=== PATIENT | female | born 1990 | race African-American/Black ===

== ENCOUNTER 2018-03-10 12:53 | Emergency (ER) | payer SELFPAY ==
--- NOTE | 2018-03-10 12:57 | PDOC ---
History of Present Illness - General Chief Complaint: Weakness Stated Complaint: WEAKNESS, DIZZINESS Time Seen by Provider: 03/10/18 12:57 - History of Present Illness Initial Comments: 27 year old with PMH of [id number] presenting 35 weeks and 4 days presenting with an episode of weakness earlier today while walking up the stairs. States that she was n the way to [facility] in the mall at approximately 11 :00 AM then felt very weak and sat down in the chair at the [facility], subsequently unable to rise from her chair. She drank a decent amount of water and felt slightly better. Currently she feels asymptomatic. Denies any actual syncope or fall. Denies fevers, chills, paresthesias, nausea, vomiting, diarrhea,or other symptoms. She has experienced these exact symptoms in the past during previous pregnancies. Had labs checked two months ago and they were WNL. Hasn't received any iron infusions in a few months. Recently relocated from [place]. 03/10/18 13:03 Past History - Past Medical History Allergies/Adverse Reactions: Allergies Allergy/AdvReac Type Severity Reaction Status Date / Time ondansetron Allergy Difficulty Verified 03/10/18 12:56 Breathing Penicillins Allergy Rash Verified 03/10/18 12:56 Home Medications: Ambulatory Orders Sulfamethoxazole/Trimethoprim [Bactrim *Ds*] 1 each PO BID #14 tablet 11/27/15 Iron Infusion IV WEEKLY 12/06/15 Hydrocodone/Acetaminophen [Lortab 5-325 mg Tablet] 1 each PO QID PRN #10 tablet MDD 5 pills 12/07/15 Anemia: Yes (ON IRON INFUSIONS WEEKLY) Asthma: No Cancer: No Cardiac Disorders: No CVA: No COPD: No CHF: No Dementia: No Diabetes: No GI Disorders: No Disorders: No HTN: No Hypercholesterolemia: No Liver Disease: No Seizures: No Thyroid Disease: No - Suicide/Smoking/Psychosocial Hx Smoking History: Never smoked Hx Alcohol Use: No Drug/Substance Use Hx: No Substance Use Type: None Review of Systems - Review of Systems Constitutional: No: Chills, Diaphoresis, Fever HEENTM: No: Blurred Vision, Tearing Respiratory: No: Cough, Shortness of Breath, Wheezing Cardiac (ROS): No: Chest Pain, Edema, Irregular Heart Rate ABD/GI: No: Constipated, Diarrhea, Nausea, Vomiting : No: Burning, Dysuria Musculoskeletal: No: Back Pain, Joint Pain Integumentary: No: Bruising, Erythema, Flushing Neurological: No: Headache, Numbness, Paresthesia Psychiatric: No: Anxiety, Depression Endocrine: No: Flushing, Intolerance to Cold, Intolerance to Heat Hematologic/Lymphatic: No: Anemia, Blood Clots, Easy Bleeding *Physical Exam - Physical Exam General Appearance: Yes: Nourished, Appropriately Dressed. No: Apparent Distress HEENT: positive: EOMI, BECKY, Normal ENT Inspection, Normal Voice Neck: positive: Trachea midline, Normal Thyroid, Supple. negative: Tender, Rigid Respiratory/Chest: positive: Lungs Clear, Normal Breath Sounds. negative: Chest Tender, Respiratory Distress, Accessory Muscle Use Cardiovascular: positive: Regular Rhythm, Regular Rate Gastrointestinal/Abdominal: positive: Normal Bowel Sounds, Flat, Decreased BS. negative: Tender Musculoskeletal: positive: Normal Inspection. negative: Decreased Range of Motion Extremity: positive: Normal Capillary Refill, Normal Inspection, Normal Range of Motion. negative: Tender Integumentary: positive: Normal Color, Dry, Warm Neurologic: positive: citrix engineer II-XII NML intact, Fully Oriented, Alert, Normal Mood/ Affect, Normal Response, Motor Strength 5/5 Medical Decision Making - Medical Decision Making 27 year old with history of anemia and weakness during previous pregnancies presenting with any episode of weakness,. EKG showing rate 87, MO 142, QRS 78, QTc 433, and normal axis. Will sen basic labs ad UA then send upstairs. 03/10/18 13:27 *DC/Admit/Observation/Transfer Diagnosis at time of Disposition: Weakness - Discharge Dispostion Disposition: HOME Condition at time of disposition: Stable Decision to Admit order: No - Referrals Referrals: Addison Ceron MD [Staff Physician] - - Patient Instructions Printed Discharge Instructions: DI for Muscle Weakness Additional Instructions: Please stay hydrated. Please find OB care while you are here in [place]/ [place]. You can seek a referral from the OB team when you go upstairs. Please return to the ED if you have worsening weakness, any new or worsening symptoms. - Post Discharge Activity
[2018-03-10 13:01] VITALS: BMI 23.6
--- NOTE | 2018-03-10 13:25 | PDOC ---
Attending Attestation - Resident Resident Name: Pallavi Barron - ED Attending Attestation I have performed the following: I have examined & evaluated the patient, The case was reviewed & discussed with the resident, I agree w/resident's findings & plan - HPI HPI: 03/10/18 13:21 27-year-old female history of anemia requiring iron transfusions in the past, at 35 weeks gestation of otherwise uncomplicated recently relocated from [place] presents here today for evaluation of lightheadedness/near syncope after climbing up stairs. At baseline, patient has lightheadedness with exertion , has had negative workups in the past, today while climbing stairs had more severe lightheadedness with near-syncope, presents to the emergency department. Currently asymptomatic and feels better, denies any chest pain or palpitations or difficulty breathing, denies any unilateral leg pain or swelling, denies any recent fevers or chills or infectious complaints, or dehydration. - Physicial Exam PE: 03/10/18 13:23 Vital signs normal, blood pressure 119 systolic Very well-appearing, seated upright in stretcher making jokes with staff, no complaints Heart is regular, no audible murmur or ectopy or tachycardia. Lungs are clear. Gravid abdomen, nontender No leg swelling or tenderness - Medical Decision Making 03/10/18 13:24 27-year-old female with history of anemia and episodic lightheadedness resents with exertional lightheadedness, now resolved. No specific cardiopulmonary complaints or neurological complaints, hemodynamically stable here without red flags on history or physical exam. EKG shows no concerning findings We'll send CBC to assess level of anemia, check UA Labor and delivery referral for monitoring Heart Score/ECG Review #1 ECG reviewed & interpreted by me at: 13:12 General ECG Interpretation: Sinus Rhythm, Normal Rate (87), Normal Intervals ( qtc 433), No acute ischemic changes
[2018-03-10 13:48] LABS: BASO % 0.3 % (0-2.0); EOS % 0.2 % (0-4.5); HEMATOCRIT 27.3 % (32.4-45.2); HEMOGLOBIN 8.5 GM/dL (10.7-15.3); LYMPH % 12.5 % (8-40); MCH 21.1 pg (25.7-33.7); MCHC 31.2 g/dl (32.0-36.0); MEAN CELL VOLUME 67.7 fl (80-96); MEAN PLT VOLUME 8.3 fl (7.5-11.1); MONO % 7.2 % (3.8-10.2); NEUT % 79.8 % (42.8-82.8); PLATELET COUNT 298 K/MM3 (134-434); RBC 4.03 M/mm3 (3.60-5.2); RDW 17.3 % (11.6-15.6); WHITE BLOOD COUNT 11.2 K/mm3 (4.0-10.0)
[2018-03-10 14:13] LABS: ALBUMIN 2.6 g/dl (3.4-5.0); ALK PHOS 201 U/L (45-117); ANION GAP 7 MMOL/L (8-16); BILIRUBIN,TOTAL 0.6 mg/dL (0.2-1); BLOOD UREA NITROGEN 6 mg/dL (7-18); CALCIUM 8.7 mg/dL (8.5-10.1); CHLORIDE 105 mmol/L (98-107); CO2 24 mmol/L (21-32); CREATININE 0.5 mg/dL (0.55-1.3); GLUCOSE,RANDOM 92 mg/dL (74-106); POTASSIUM 3.8 mmol/L (3.5-5.1); SGOT/AST 15 U/L (15-37); SGPT/ALT 10 U/L (13-61); SODIUM 135 mmol/L (136-145); TOT PROT 6.8 g/dl (6.4-8.2)
[2018-03-10 14:16] LABS: URINE APPEARANCE SLCLOUDY; URINE BILIRUBIN NEGATIVE (<2.0 mg/dL); URINE COLOR YELLOW; URINE GLUCOSE (UA) NEGATIVE (NEGATIVE); URINE KETONE NEGATIVE (NEGATIVE); URINE LEUK ESTERASE 1+ (NEGATIVE); URINE NITRITE NEGATIVE (NEGATIVE); URINE PROTEIN 1+ (NEGATIVE); URINE UROBILINOGEN NEGATIVE mg/dL (0.2-1.0)
[2018-03-10 14:28] LABS: EPI CELLS MODERATE /HPF (FEW); URINE HYALINE CAST 27 /lpf; URINE MUCUS RARE
[2018-03-10 14:33] LABS: ANISOCYTOSIS 1+; MACROCYTOSIS 1+; OVALOCYTE 1+; TEAR DROP CELLS 1+
[2018-03-10 15:11] VITALS: BP 128/71; PULSE 84; TEMP 98.2
[2018-03-10] MEDS ORDERED: DEXTROSE 5%-LACTATED RINGERS 500 ML IV ONE ×2 (16:45→17:45)
--- NOTE | 2018-03-10 17:02 | EKG ---
Test Reason : Blood Pressure : / mmHG Vent. Rate : 087 BPM Atrial Rate : 087 BPM P-R Int : 142 ms QRS Dur : 078 ms QT Int : 360 ms P-R-T Axes : 023 063 016 degrees QTc Int : 433 ms NORMAL SINUS RHYTHM NORMAL ECG NO PREVIOUS ECGS AVAILABLE Confirmed by MD JIM, CHARLENE ([id number]) on 03/10/2018 5:02:16 PM Referred By: Confirmed By:CHARLENE FERNANDEZ MD
== END 2018-03-10 18:18 | disposition home or self-care (01) ==
LOC: JER 12:53
PROC: 3E0337Z Introduction of Electrolytic and Water Balance Substance into Peripheral Vein, Percutaneous Approach (ICD-10-PCS; principal; 2018-03-10)
DX: O26.893 Other specified pregnancy related conditions, third trimester (principal); R53.1 Weakness; O99.013 Anemia complicating pregnancy, third trimester; Z3A.35 35 weeks gestation of pregnancy
CPT/HCPCS: 36415; 76801-TC; 80053; 81003; 81015; 85025; 86850; 86900; 86901; 93005; 93010; 99282-25